=== PATIENT | male | born 1945 | race Caucasian/White ===

== ENCOUNTER 2025-07-23 10:19 | Outpatient (OUT) | payer MEDICARE, OTHER, SELFPAY ==
--- NOTE | 2025-07-23 10:24 | XR_ITS ---
The [address] [address] Patient Name: STEVIE LOWRY MRN: [id number] date: 1945 Sex: M Assigned Patient Location: RAD Current Patient Location: RAD Accession/Order Number: [id number] Exam Date: 07/23/2025 10:30 Report Date: 07/23/2025 13:08 At the request of: JC TINAJERO DPEdgar Procedure: XR foot LT min 3V LEFT FOOT - 3 views CLINICAL DATA: Chronic left foot lump near the arch medially. COMPARISON: None Standing AP, lateral and oblique views were obtained. A marker was placed in the area of clinical concern. There is flattening of plantar arch. There is no acute fracture or dislocation. Mild degenerative change is seen at the tarsometatarsal joints, greater medially and at the dorsum of the tarsals. There is a small plantar calcaneal spur. There are no significant soft tissue abnormalities. XR/XR foot LT min 3V IMPRESSION: MILD DEGENERATIVE CHANGES. NO ACUTE BONY FINDINGS. Impression dictated by: Josiane Palmer M.D. 07/23/2025 1:08 PM Dictation Location: [employer] Electronically authenticated by: [id number] Y Date: 07/23/2025 13:08
== END 2025-07-23 10:20 | disposition home or self-care (01) ==
LOC: RAD 10:19
PROVIDERS: PCP Family Medicine; Visit Provider Podiatrist Foot & Ankle Surgery
DX: M79.672 Pain in left foot (principal)
CPT/HCPCS: 73630